=== PATIENT | female | born 1990 | race Two or more races ===

== ENCOUNTER 2021-10-19 13:19 | Emergency (ER) | payer BC ==
[2021-10-19] MEDS ORDERED: Ketorolac 60 MG/2 ML SDV IM ONE (14:07)
== END 2021-10-19 15:24 | disposition home or self-care (01) ==
LOC: MW.ED 13:19
DX: U07.1 COVID-19 (principal); Z88.0 Allergy status to penicillin
CPT/HCPCS: 71045; 87635; 87651; 96372; 99284; J1885; 99283; U0002